=== PATIENT | female | born 1965 ===

== ENCOUNTER 2017-02-04 12:15 | Emergency (ER) | payer OTHER ==
[2017-02-04 12:15] VITALS: BMI 31.4
[2017-02-04 12:38] VITALS: BP 160/83; PULSE 79; TEMP 98.2
--- NOTE | 2017-02-04 13:31 | C.PDOC ---
History Of Present Illness 52yo female, presents to ED for evaluation of shortness of breath, rhinorrhea, sore throat, cough with yellow sputum. Patient has a hsitory of asthma and used her inhaler multiple times yesterday. Patient states she did not use her inhaler today as she was unsure of how many doses she could take. She reports mild bodyaches and denies any chest pain, fever. She offers no other medical complaints. Time Seen by Provider: 02/04/17 12:45 Chief Complaint (Nursing): Shortness Of Breath History Per: Patient History/Exam Limitations: no limitations Onset/Duration Of Symptoms: Days Current Symptoms Are (Timing): Still Present Past Medical History Reviewed: Historical Data, Nursing Documentation, Vital Signs Vital Signs: Last Vital Signs Temp 98.2 F 02/04/17 12:30 Pulse 79 02/04/17 12:30 Resp 18 02/04/17 13:50 BP 160/83 H 02/04/17 12:30 Pulse Ox 98 02/04/17 13:48 - Medical History PMH: Anemia, Anxiety, Asthma, Bronchitis, Colonic Polyps, HTN, Hypercholesterolemia Denies: Chronic Kidney Disease Surgical History: No Surg Hx Family History: States: No Known Family Hx - Social History Hx Alcohol Use: No Hx Substance Use: No Review Of Systems Except As Marked, All Systems Reviewed And Found Negative. Constitutional: Negative for: Fever ENT: Positive for: Nose Discharge Respiratory: Positive for: Cough, Shortness of Breath, Sputum Physical Exam - Physical Exam Appears: Non-toxic, No Acute Distress, Other (speaking full sentences) Skin: Warm, Dry Throat: Erythema, No Exudate Cardiovascular: Rhythm Regular Respiratory: Normal Breath Sounds, No Wheezing ED Course And Treatment O2 Sat by Pulse Oximetry: 100 (RA) Pulse Ox Interpretation: Normal Medical Decision Making Medical Decision Making: Impression: Viral syndrome Plan: -- Patient to be discharged home with prescriptions for Tylenol and tessalon perles. Informed to follow up with PCP and to return to ED if symptoms worsen or new symptoms arise. Disposition Counseled Patient/Family Regarding: Diagnosis, Need For Followup, Rx Given - Disposition Referrals: Shaik lAlen MD [Staff Provider] - Disposition: HOME/ ROUTINE Disposition Time: 13:30 Condition: STABLE Additional Instructions: CONTINE UTILIZANDO EL INHALADOR CHATA SEA NECESARIO USE MEDICAMENTOS PARA LA TOSA Y EL DOLOR CHATA SEA NECESARIO BEBER MUCHO LQUIDO DEVUELVA A LA MAGDALENA DE EMERGENCIA SI LOS SNTOMAS FUNCIONAN Prescriptions: Acetaminophen [Tylenol 325mg tab] 650 mg PO Q6 PRN #30 tab PRN Reason: pain/fever Benzonatate [Tessalon Perles] 100 mg PO BID PRN #15 sgl PRN Reason: Cough Instructions: Upper Respiratory Infection (ED), Viral Syndrome (ED) Forms: [employer] (Uzbek) Print Language: VIETNAMESE - Clinical Impression Clinical Impression: Viral upper respiratory illness - Scribe Statement The provider has reviewed the documentation as recorded by the Gurpreetibazalea [place] Provider Attestation: All medical record entries made by the Scribe were at my direction and personally dictated by me. I have reviewed the chart and agree that the record accurately reflects my personal performance of the history, physical exam, medical decision making, and the department course for this patient. I have also personally directed, reviewed, and agree with the discharge instructions and disposition.
[2017-02-04 13:49] VITALS: RESP 18
[2017-02-04 14:08] VITALS: O2SAT 100
== END 2017-02-04 13:54 | disposition home or self-care (01) ==
LOC: C.ER 12:15
DX: J06.9 Acute upper respiratory infection, unspecified (principal)